=== PATIENT | male | born 1990 | race African-American/Black ===

== ENCOUNTER 2016-07-11 21:41 | Emergency (ER) | payer BC, MEDICAID ==
[~2016-07-11] VITALS: Ht 170.2 cm; Wt 63.0 kg
[2016-07-11] MEDS ORDERED: SODIUM CHLORIDE 0.9% 1,000 ML IV ONE (22:20)
[2016-07-11] MEDS ORDERED: MORPHINE SULFATE 4 MG/ML CPJ (NOT FOR IM USE) IV STA (22:20)
[2016-07-11] MEDS ORDERED: ONDANSETRON HCL 4MG/2ML VIAL IV STA (22:20)
[2016-07-11] MEDS ORDERED: KETOROLAC 30MG/ML VIAL IV STA (22:20)
[2016-07-11] MEDS ORDERED: MIDAZOLAM HCL 2 MG/2 ML VIAL IV ONE (22:30)
[2016-07-11] MEDS ORDERED: MORPHINE SULFATE 4 MG/ML CPJ (NOT FOR IM USE) IV ONE (23:00)
[2016-07-11] MEDS ORDERED: MIDAZOLAM HCL 2 MG/2 ML VIAL ONE (23:18)
[2016-07-12] MEDS ORDERED: MIDAZOLAM HCL 2 MG/2 ML VIAL IV ONE
[2016-07-12 00:20] VITALS: BP 103/63
== END 2016-07-12 00:30 | disposition home or self-care (01) ==
LOC: ER 21:42
DX: S43.014A Anterior dislocation of right humerus, initial encounter (principal); Y35.893A Legal intervention involving other specified means, suspect injured, initial encounter; Y93.89 Activity, other specified; Y92.9 Unspecified place or not applicable; R03.0 Elevated blood-pressure reading, without diagnosis of hypertension; F12.90 Cannabis use, unspecified, uncomplicated
CPT/HCPCS: 23650; 73030; 96361; 96374; 96375; 96376; 99285; J1885; J2250; J2270; J2405; J7030; Z7610; L3670

== ENCOUNTER 2017-01-14 08:31 | Emergency (ER) | payer BC, MEDICAID ==
[~2017-01-14] VITALS: Ht 180.3 cm; Wt 57.0 kg
[2017-01-14] MEDS ORDERED: LIDOCAINE HCL 1% 20ML VIAL (Pyxis) INJ INFIL ONE (09:30)
[2017-01-14] MEDS ORDERED: FENTANYL CITRATE/PF 50MCG/ML 2ML VIAL IV ONE (09:30)
[2017-01-14] MEDS ORDERED: KETOROLAC 30MG/ML VIAL IV ONE (11:30)
[2017-01-14 12:16] VITALS: BP 125/66
== END 2017-01-14 12:18 | disposition home or self-care (01) ==
LOC: ER 09:00
DX: S43.004A Unspecified dislocation of right shoulder joint, initial encounter (principal); F12.10 Cannabis abuse, uncomplicated; X58.XXXA Exposure to other specified factors, initial encounter; Y93.72 Activity, wrestling; Y92.89 Other specified places as the place of occurrence of the external cause; Y99.8 Other external cause status
CPT/HCPCS: 23650; 73030; 96374; 99284; J3010; J3490; Z7610; L3670

== ENCOUNTER 2018-08-19 12:35 | Emergency (ER) | payer BC, MEDICAID ==
[~2018-08-19] VITALS: Ht 180.3 cm; Wt 60.0 kg
[2018-08-19] MEDS ORDERED: MORPHINE SULFATE 4 MG/ML CPJ (NOT FOR IM USE) IV ONE (14:45)
[2018-08-19] MEDS ORDERED: ONDANSETRON HCL 4MG/2ML INJ IV ONE (15:00)
[2018-08-19] MEDS ORDERED: PROPOFOL 200MG/20ML VIAL IV ONE (15:45)
[2018-08-19 17:27] VITALS: BP 149/84
== END 2018-08-19 17:52 | disposition home or self-care (01) ==
LOC: ER 12:35
DX: S43.014A Anterior dislocation of right humerus, initial encounter (principal); S02.82XA Fracture of other specified skull and facial bones, left side, initial encounter for closed fracture; F12.10 Cannabis abuse, uncomplicated; Y08.89XA Assault by other specified means, initial encounter; Y93.89 Activity, other specified; Y92.89 Other specified places as the place of occurrence of the external cause; Y99.8 Other external cause status
CPT/HCPCS: 23650; 70486; 73030; 96374; 96375; 99152; 99153; 99285; J2270; J2405; J2704